=== PATIENT | male | born 1995 | race Caucasian/White ===

== ENCOUNTER → 2019-12-08 | Day surgery (SDC) | payer OTHER ==
[~2019-12-08] MED LIST: ACETAMINOPHEN 1000 MG/100 ML IV ONE; BUPIVACAINE HCL 0.5% INJ 30 ML VIAL INJ ONE; CLINDAMYCIN PHOS 900MG/ 50ML 50 ML IV ONE; DEXAMETHASONE SOD PHOS INJ 4 MG/ML VIAL ONE; FENTANYL CITRATE/PF 100MCG/2 ML INJ ONE; KETOROLAC TROMETHAMINE 30 MG/ML VIAL ONE; LIDOCAINE HCL 2% LOCAL INJ 5 ML SDV VIAL INJ ONE; MIDAZOLAM HCL 2 MG/2 ML VIAL ONE; NAPROXEN250 MG PO; ONDANSETRON HCL INJ 2MG/ML 2ML 2 MG/ML VIAL ONE; PROPOFOL IV EMULSION 10 MG/ML 20 ML VIAL ONE; SEVOFLURANE INHAL SOLN 250 ML PEN BTL ONE
--- NOTE | 2019-12-08 09:17 | Operative Report ---
DATE OF PROCEDURE: 12/08/2019 SURGEON: David Benoit MD LEGISLATIVE CORRESPONDENT: Amrik Morton PA-C. PREOPERATIVE DIAGNOSIS: Symptomatic bipartite patella, right knee. POSTOPERATIVE DIAGNOSIS: Symptomatic bipartite patella, right knee. PROCEDURE PERFORMED: Excision of bipartite patella fragment, right knee. INDICATIONS: The patient is a 24-year-old gentleman, who has a symptomatic bipartite patella on the right side. He has been treated with conservative management, but continues to complain of symptoms. The findings and options have been discussed. He would like to proceed with surgical intervention. The risks and benefits of an excision of the ununited fragment have been explained. He states he understands and wishes to proceed. PROCEDURE IN DETAIL: The patient was brought to the operating room and placed under general anesthetic. He received prophylactic antibiotics. His right lower extremity was prepped and draped in a sterile manner. A preoperative time-out was performed. The extremity was exsanguinated and a proximal tourniquet was briefly inflated to 300 mmHg. A vertical incision was made over the anterior aspect of the right knee. The superolateral patella was exposed. An 18-gauge needle was used to outline the fibrous nonunion of the bipartite fragment. Once the line was distinguish, the fragment was carefully excised using a 15 blade surgical knife. This was sent to pathology. The wound was then irrigated. The knee was put through range of motion and noted to have normal patellar stability. The small portion of the lateral quadriceps insertion and lateral retinaculum were repaired with buried 0 Vicryl stitches. The skin was closed with subcuticular Vicryl and juanita. A 6 mL of 0.5% Marcaine without epinephrine was injected around the incision. A sterile bandage was applied. He was extubated and transported to the recovery room in stable condition. There was no blood loss and all needle and sponge counts were correct. David Benoit MD DR/LUKE /[id number]
[2019-12-08 09:25] VITALS: BP 123/76
== END | disposition home or self-care (01) ==
LOC: OR 05:30
PROVIDERS: ATTEND Specialist
DX: Q74.1 Congenital malformation of knee (principal); Z88.0 Allergy status to penicillin; Z01.812 Encounter for preprocedural laboratory examination; Z11.59 Encounter for screening for other viral diseases
CPT/HCPCS: 27599; 87635; J0131; J1100; J1885; J2001; J2250; J2405; J2704; J3010